=== PATIENT | female | born 1960 | race African-American/Black ===

== ENCOUNTER 2020-04-25 11:30 | Outpatient (CLI) | payer MEDICARE, MEDICAID ==
--- NOTE | 2020-04-25 13:40 | RAD ---
RIGHT KNEE 2 VIEWS: Date: 04/25/2020 HISTORY: Right knee pain. FINDINGS: Some mild medial compartment joint space narrowing. No spur formation or joint effusion. IMPRESSION: Mild medial compartment joint space narrowing. POS: MESERET
--- NOTE | 2020-04-25 13:47 | RAD ---
LUMBAR SPINE SERIES 3 VIEWS: Date: 04/25/2020 HISTORY: Low back pain. FINDINGS: Vertebral bodies are normal in height. Degenerative facet changes along the course of the spine and s evere disc narrowing at L4-5. Very minimal spondylolisthesis also seen at this level. Pedicles are in tact. IMPRESSION: Moderate arthritic changes of the spine. POS: MESERET
== END 2020-04-25 11:31 | disposition home or self-care (01) ==
LOC: NAV RAD 11:30
PROVIDERS: ATTEND Nurse Practitioner Family
DX: M54.5 Low back pain (principal); M25.561 Pain in right knee; G89.29 Other chronic pain; M47.816 Spondylosis without myelopathy or radiculopathy, lumbar region; M17.11 Unilateral primary osteoarthritis, right knee
CPT/HCPCS: 72100

== ENCOUNTER 2021-09-12 09:58 | Outpatient (CLI) | payer MEDICARE, MEDICAID | END 2021-09-12 09:59 | disposition home or self-care (01) | LOC: NAV RAD 09:58 | PROVIDERS: ATTEND Family Medicine | DX: M54.50 Low back pain, unspecified (principal); M47.816 Spondylosis without myelopathy or radiculopathy, lumbar region | CPT/HCPCS: 72100 ==